=== PATIENT | female | born 1950 | race American Indian/Alaskan Native ===

== ENCOUNTER 2016-12-26 12:58 | Emergency (ER) | payer MEDICARE ==
[2016-12-26 13:06] VITALS: BMI 18.6
[2016-12-26 13:10] VITALS: RESP 18; TEMP 98.2; O2SAT 99
[2016-12-26] MEDS ORDERED: Sodium Chloride 0.9% 1,000 ML IV ONE (14:02)
[2016-12-26] MEDS ORDERED: DiphenhydrAMINE 50 mg/ml Inj IVP STA ×2 (14:03→17:48)
--- NOTE | 2016-12-26 15:38 | CT ---
PROCEDURE: CT HEAD WITHOUT CONTRAST. HISTORY: PERSISTENT HEADACHE SINCE HEAD INJURY COMPARISON: None available. TECHNIQUE: Axial computed tomography images were obtained through the head/brain without intravenous contrast. Radiation dose: Total exam DLP = 816.32 mGy-cm. This CT exam was performed using one or more of the following dose reduction techniques: Automated exposure control, adjustment of the mA and/or kV according to patient size, and/or use of iterative reconstruction technique. FINDINGS: HEMORRHAGE: No intracranial hemorrhage. BRAIN: No mass effect or edema. No atrophy or chronic microvascular ischemic changes. VENTRICLES: Unremarkable. No hydrocephalus. CALVARIUM: Unremarkable. PARANASAL SINUSES: Unremarkable as visualized. No significant inflammatory changes. MASTOID AIR CELLS: Unremarkable as visualized. No inflammatory changes. OTHER FINDINGS: None. IMPRESSION: No evidence of intracranial hemorrhage intracranial collection mass effect or midline shift.
--- NOTE | 2016-12-26 15:47 | CT ---
PROCEDURE: CT Cervical Spine without contrast HISTORY: Neck pain, head injury 1 month ago COMPARISON: None available. TECHNIQUE: Axial computed tomography images were obtained of the cervical spine without the use of intravenous contrast. Coronal and sagittal reformatted images were created and reviewed. Radiation dose: Total exam DLP = 340.19 mGy-cm. This CT exam was performed using one or more of the following dose reduction techniques: Automated exposure control, adjustment of the mA and/or kV according to patient size, and/or use of iterative reconstruction technique. FINDINGS: VERTEBRAE: No fracture. Normal alignment. No destructive bony lesion. DISCS/SPINAL CANAL/NEURAL FORAMINA: Severe degenerative changes are noted more prominent at the lower cervical spine. Multilevel moderate narrowing of the disc spaces seen particularly at C5-C6 and C6-C7. Osteophyte disc bulging complex are also seen also more prominent at C5-C6 and C6-C7 PARASPINAL SOFT TISSUES: Unremarkable. OTHER FINDINGS: None. IMPRESSION: No evidence of acute fracture or subluxation. Moderate degenerative changes more prominent at C5-C6 and C6-C7 associated with posterior osteophyte disc bulging complex and mild narrowing of the spinal canal and neural foramina.
[2016-12-26 15:52] LABS: BASO # 0.1 K/uL (0.0-0.2); BASO % 0.6 % (0.0-2.0); EOS # 0.6 K/uL (0.0-0.7); EOS % 7.2 % (0.0-4.0); HEMATOCRIT 35.2 % (34.0-47.0); LYMPH # 0.5 K/uL (1.0-4.3); LYMPH % 5.6 % (20.0-40.0); MEAN CORPUSCULAR HEMOGLOBIN 29.9 pg (27.0-31.0); MEAN CORPUSCULAR HGB CONC 33.9 g/dL (33.0-37.0); MEAN PLATELET VOLUME 8.8 fL (7.2-11.7); MONO # 1.4 K/uL (0.0-0.8); MONO % 16.1 % (0.0-10.0); PLATELET COUNT 264 K/uL (130-400); RED CELL DISTRIBUTION WIDTH 13.7 % (11.5-14.5); WHITE BLOOD COUNT 8.9 K/uL (4.8-10.8)
[2016-12-26] MEDS ORDERED: DiphenhydrAMINE 50 mg/ml Inj ONE ×2 (15:53→17:42)
[2016-12-26] MEDS ORDERED: Sodium Chloride 0.9% 1,000 ML ONE (15:54)
[2016-12-26 16:29] LABS: CHLORIDE 96 mmol/L (98-107); POTASSIUM 3.5 mmol/L (3.6-5.2); SODIUM 131 mmol/L (132-148)
[2016-12-26 16:31] LABS: GFR AFRICAN-AMERICAN > 60
[2016-12-26 16:32] LABS: ALKALINE PHOSPHATASE 89 U/L (38-126); ALT/SGPT 35 U/L (9-52); AST/SGOT 29 U/L (14-36); BILIRUBIN,TOTAL 0.7 mg/dL (0.2-1.3); BLOOD UREA NITROGEN 11 mg/dL (7-17); CALCIUM 8.7 mg/dl (8.6-10.4); CARBON DIOXIDE 26 mmol/L (22-30); GLUCOSE,RANDOM 110 mg/dL (65-105); TOTAL PROTEIN 6.9 g/dL (6.3-8.3)
--- NOTE | 2016-12-26 16:42 | C.PDOC ---
History Of Present Illness 66-year-old female presents to the emergency department with complaints of epigastric abdominal pain, headache, associated with neck pain and nausea x approx 10 days. Patient states that her symptoms started after she was at [facility], fell backwards and hit her head on the floor. She denies LOC, but has had persistent pain since then. She has been self-medicating at home for viral symptoms, took powder supplement and after that developed a rasj on her body. She denies chest pain, shortness of breath, fever, vomiting, diarrhea, cough, sore throat, runny nose, dysuria/hematuria, visual changes, facial droop, slurred speech, extremity weakness, sensory changes. Time Seen by Provider: 12/26/16 13:47 Chief Complaint (Nursing): Headache History Per: Patient History/Exam Limitations: no limitations Onset/Duration Of Symptoms: Days, Persistent Current Symptoms Are (Timing): Still Present Severity: Moderate Past Medical History Reviewed: Historical Data, Nursing Documentation, Vital Signs Vital Signs: Last Vital Signs Temp 98.2 F 12/26/16 13:07 Pulse 98 H 12/26/16 17:36 Resp 18 12/26/16 17:36 BP 109/66 12/26/16 17:36 Pulse Ox 99 12/26/16 18:06 - Medical History PMH: No Chronic Diseases Family History: States: No Known Family Hx - Social History Hx Alcohol Use: No Hx Substance Use: No - Immunization History Hx Tetanus Toxoid Vaccination: No Hx Influenza Vaccination: No Hx Pneumococcal Vaccination: Yes Review Of Systems Except As Marked, All Systems Reviewed And Found Negative. Constitutional: Negative for: Fever, Chills Cardiovascular: Negative for: Chest Pain, Palpitations Respiratory: Positive for: Cough. Negative for: Shortness of Breath Gastrointestinal: Positive for: Nausea, Abdominal Pain. Negative for: Vomiting , Diarrhea Genitourinary: Negative for: Dysuria, Frequency Musculoskeletal: Positive for: Neck Pain Skin: Positive for: Rash Neurological: Positive for: Headache. Negative for: Weakness, Numbness, Incoordination, Change in Speech, Confusion, Seizures, Altered Mental Status, Dizziness Physical Exam - Physical Exam Appears: Well, Non-toxic, No Acute Distress Skin: Warm, Dry, Rash (diffuse urticaria, sparing palms/soles, nonvesicular) Head: Normacephalic Eye(s): bilateral: Normal Inspection Oral Mucosa: Moist Neck: Normal, Normal ROM, No Midline Cervical Tenderness, Paracervical Tenderness (mild TTP paraspinal at C1-C2 level), No Step Off Deformity, Supple Cardiovascular: Rhythm Regular (mildly tachycardic ) Respiratory: Normal Breath Sounds, No Accessory Muscle Use, No Rales, No Rhonchi , No Wheezing Gastrointestinal/Abdominal: Bowel Sounds, Soft, Tenderness (mild epigastric TTP , (-) Hogan's), No Guarding, No Rebound Back: Normal Inspection, No CVA Tenderness, No Vertebral Tenderness, No Paraspinal Tenderness Extremity: Normal ROM, No Pedal Edema, No Calf Tenderness Neurological/Psych: Oriented x3, Normal Speech, Normal Cognition, Normal Cranial Nerves, No Cerebellar Signs, Normal Motor, Normal Sensation Gait: Steady ED Course And Treatment - Laboratory Results Result Diagrams: 12/26/16 15:46 12/26/16 15:46 ECG: Interpreted By Me, Viewed By Me (sinus tachycardia 106 bpm, normal axis, incomplete RBBB, no acute ST/t wave changes) ECG Interpretation: Abnormal O2 Sat by Pulse Oximetry: 99 (RA) Pulse Ox Interpretation: Normal - Other Rad CT head X-Ray: Viewed By Me, Read By Radiologist Interpretation: Accession No. : [id number]. Patient Name / ID : BOO Manning / [id number]. Exam Date : 12/26/2016 15:10:54 ( Approved ). Study Comment : Sex / Age : F / 66Y. Creator : fileomn toussaint. Dictator : Sharmila Seth. Hvac Lead : Linen Aide : Sharmila Seth. Approver2 : Report Date : 12/26/2016 15:27:53. My Comment : . PROCEDURE: CT HEAD WITHOUT CONTRAST. HISTORY: PERSISTENT HEADACHE SINCE HEAD INJURY. COMPARISON : None available. TECHNIQUE: Axial computed tomography images were obtained through the head/brain without intravenous contrast. Radiation dose: Total exam DLP = 816.32 mGy-cm. This CT exam was performed using one or more of the following dose reduction techniques: Automated exposure control, adjustment of the mA and/or kV according to patient size, and/or use of iterative reconstruction technique. FINDINGS: HEMORRHAGE: No intracranial hemorrhage. BRAIN: No mass effect or edema. No atrophy or chronic microvascular ischemic changes. VENTRICLES: Unremarkable. No hydrocephalus. CALVARIUM: Unremarkable. PARANASAL SINUSES: Unremarkable as visualized. No significant inflammatory changes. MASTOID AIR CELLS: Unremarkable as visualized. No inflammatory changes. OTHER FINDINGS: None. IMPRESSION: No evidence of intracranial hemorrhage intracranial collection mass effect or midline shift. - CT Scan/US cspine CT Other Rad Studies (CT/US): Read By Radiologist, Radiology Report Reviewed CT/US Interpretation: Accession No. : [id number]. Patient Name / ID : BOO Manning / [id number]. Exam Date : 12/26/2016 15:14:17 ( Approved ). Study Comment : Sex / Age : F / 66Y. Creator : filemon toussaint. Dictator : Sharmila Seth. Hvac Lead : Linen Aide : Sharmila Seth. Approver2 : Report Date : 12/26/2016 15:27:53. My Comment : . PROCEDURE: CT Cervical Spine without contrast. HISTORY: Neck pain, head injury 1 month ago. COMPARISON: None available. TECHNIQUE: Axial computed tomography images were obtained of the cervical spine without the use of intravenous contrast. Coronal and sagittal reformatted images were created and reviewed. Radiation dose: Total exam DLP = 340.19 mGy-cm. This CT exam was performed using one or more of the following dose reduction techniques: Automated exposure control, adjustment of the mA and/or kV according to patient size, and/or use of iterative reconstruction technique. FINDINGS: VERTEBRAE: No fracture. Normal alignment. No destructive bony lesion. DISCS/SPINAL CANAL/NEURAL FORAMINA: Severe degenerative changes are noted more prominent at the lower cervical spine. Multilevel moderate narrowing of the disc spaces seen particularly at C5 -C6 and C6-C7. Osteophyte disc bulging complex are also seen also more prominent at C5-C6 and C6-C7. PARASPINAL SOFT TISSUES: Unremarkable. OTHER FINDINGS: None. IMPRESSION: No evidence of acute fracture or subluxation. Moderate degenerative changes more prominent at C5-C6 and C6-C7 associated with posterior osteophyte disc bulging complex and mild narrowing of the spinal canal and neural foramina. Progress Note: Blood work, EKG, CT head and Cspine ordered and reviewed. Patient given IV NS bolus, PO tylenol, IV solumedrol, IV benadryl and IV pepcid. Reevaluation Time: 18:15 Reassessment Condition: Improved (Patient reassessed, is resting comfortably and states she is feeling better. Rash has improved, and patient is well appearing, with normal vitals. CT head and Cspine (-) for acute injuries. Patient ambulating normally in the ED. She was instructed to follow up with PMD /clinic in 1-2 days, or to return to ED if symptoms worsen. Rxs for prendisone , benadryl and naprosyn given.) Disposition Counseled Patient/Family Regarding: Studies Performed, Diagnosis, Need For Followup, Rx Given - Disposition Referrals: [facility] [Outside] Disposition: HOME/ ROUTINE Disposition Time: 18:15 Condition: STABLE Additional Instructions: FOLLOW UP WITH YOUR DOCTOR IN 1-2 DAYS USE MEDICATIONS NEEDED/DIRECTED RETURN TO ER IF SYMPTOMS WORSEN DRINK PLENTY OF FLUIDS Prescriptions: DiphenhydrAMINE [Benadryl] 25 mg PO Q4H PRN #15 cap PRN Reason: allergies Naproxen [Naprosyn Tab] 375 mg PO BID PRN #15 tab PRN Reason: pain predniSONE [predniSONE Tab] 40 mg PO DAILY #6 tab Instructions: Urticaria (ED), Acute Headache (ED), Viral Syndrome (ED) Print Language: IRISH - POA Present On Arrival: None - Clinical Impression Clinical Impression: Headache, Viral syndrome, Urticaria - Scribe Statement The provider has reviewed the documentation as recorded by the Shmuel Samuel All medical record entries made by the Randyibmargoth were at my direction and personally dictated by me. I have reviewed the chart and agree that the record accurately reflects my personal performance of the history, physical exam, medical decision making, and the department course for this patient. I have also personally directed, reviewed, and agree with the discharge instructions and disposition.
[2016-12-26 17:37] VITALS: BP 109/66; PULSE 98
[2016-12-26 17:54] LABS: EOSINOPHIL 5 % (0-4); NEUTROPHIL 74 % (50-75); TOTAL CELLS COUNTED 100
--- NOTE | 2016-12-30 19:03 | CARD ---
APPROVED REPORT EKG Measurement Heart [id number] <Conclusion> Sinus tachycardia Incomplete right bundle branch block Nonspecific ST abnormality Abnormal ECG
== END 2016-12-26 18:43 | disposition home or self-care (01) ==
LOC: C.ER 12:58
DX: B34.9 Viral infection, unspecified (principal); R51 Headache; L50.9 Urticaria, unspecified
CPT/HCPCS: 70450; 72125; 80053; 85025; 93005; 96361; 96374; 96375; 96376; 99285; J1200; J2930; J7040